=== PATIENT | male | born 1990 | race Caucasian/White ===

== ENCOUNTER 2024-12-02 22:09 | Emergency (ER) | payer SELFPAY ==
[2024-12-02 22:09] VITALS: BP 168/103; PULSE 95; RESP 16; TEMP 36.6; O2SAT 99; BMI 33.5
[2024-12-02 22:43] VITALS: BP 162/88; PULSE 92; RESP 16; TEMP 36.6; O2SAT 99
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
== END 2024-12-02 22:45 | disposition home or self-care (01) ==
PROVIDERS: Emergency Provider Emergency Medicine; PCP Family Medicine
DX: Z00.8 Encounter for other general examination (principal)
CPT/HCPCS: 99282